=== PATIENT | female | born 1950 | race Caucasian/White ===

== ENCOUNTER 2024-11-28 02:57 | Observation (INO) | payer MEDICARE, SELFPAY ==
[2024-11-28] VITALS (12 sets, daily range): BP systolic 118–155; BP diastolic 48–66; PULSE 85–100; RESP 13–24; TEMP 36.4–37.9; O2SAT 94–99; BMI 29.3
--- NOTE | ~2024-11-28 | XR_ITS ---
CLINICAL HISTORY: sob 1 view chest x-ray Comparison: None provided Findings: The lungs are clear. Normal size heart. Remote right posterior 5th rib fracture is seen. No acute osseous abnormality is identified. IMPRESSION: No acute cardiopulmonary abnormality. This document has been electronically signed by: Hailey Sams on 11/28/2024 07:08:55
--- NOTE | 2024-11-28 03:06 | ECG_ITS ---
Test Reason : SOB Blood Pressure : */* mmHG Vent. Rate : 96 BPM Atrial Rate : 96 BPM P-R Int : 128 ms QRS Dur : 64 ms QT Int : 332 ms P-R-T Axes : 77 32 34 degrees QTcB Int : 419 ms Normal sinus rhythm Septal infarct , age undetermined Abnormal ECG When compared with ECG of 04-Mar-2017 11:09, No significant change was found Referred By: Generic ED Physician Electronically Signed By: HONG LAM
[2024-11-28 03:50] LABS: Hematocrit 38.2 % (37.0-47.0); Hemoglobin 12.8 g/dl (12.0-16.0); Imm Gran Abs Auto 0.03 X10*3/uL (0.00-0.03); Imm Gran Pct Auto 0.4 % (0.0-0.4); Lymphocytes Absolute Auto 0.7 X10*3/uL (1.2-4.9); MANUAL DIFF FLAG NO; Mean Corpuscular HGB Conc 33.5 g/dl (31.0-35.0); Mean Corpuscular Hemoglobin 31.1 pg (27.0-33.0); Mean Corpuscular Volume 92.9 fL (80.0-98.0); NRBC Abs Auto 0.000 X10*3/uL (0.0-0.012); NRBC Pct Auto 0.0 /100WBC (0.0-0.2); Platelet Count 236 X10*3/uL (160-400); Red Blood Count 4.11 X10*6/uL (4.20-5.50); White Blood Count 8.5 X10*3/uL (4.8-10.8)
--- OUTSIDE RECORDS SUMMARY | 2024-11-28 03:56 | XMS_ITS | Encounter Summary ---
Author Organization [facility] Address [address] [place] [address] Care Team Providers Care Cash Register Mechanic Name Role Phone Cooper Gipson DO Primary Care Provider [phone] Encounter Details Date Type Department Care Team (Late st Contact Info) Description 06/13/2024 Lab Requisition [facility] - Main Lab [address] [facility] [place] [address] Radha Garibay MD [address] [place] [address] Encounter for other general examination Social History Tobacco Use Types Packs/Day Years Used Date Smoking Tobacco: Never Assessed Comments Unknown Sex and Gender Information Value Date Recorded Sex Assigned at Not on file Legal Sex Female 11:17 AM EST Gender Identity Not on file Sexual Orientation Not on file documented as of this encounter Plan of Treatment Not on file documented as of this encounter Procedures Procedure Name Priority Date/Time Associated Diagnosis Comments CBC WITH AUTO DIFFERENTIAL Routine 06/13/2024 6:42 AM EDT Encounter for other general examination CBC AND DIFFERENTIAL Routine 06/13/2024 6:42 AM EDT Encounter for other general examination MAGNESIUM Routine 06/13/2024 6:42 AM EDT Encounter for other general examination COMPREHENSIVE METABOLIC PANEL Routine 06/13/2024 6:42 AM EDT Encounter for other general examination documented in this encounter Results * (ABNORMAL) CBC auto differential (06/13/2024 6:42 AM EDT) Pathologist [facility] WBC 6.0 4.8 - 10.8 K/mcL LAB HEMETOLOGY METHOD 06/13/2024 10:34 AM [facility] RBC 4.00 3.80 - 4.80 M/mcL LAB HEMETOLOGY METHOD 06/13/2024 10:34 AM [facility] Hemoglobin 12.2 11.5 - 16.0 g/dL LAB HEMETOLOGY METHOD 06/13/2024 10:34 AM [facility] Hematocrit 38.5 35.0 - 47.0 % LAB HEMETOLOGY METHOD 06/13/2024 10:34 AM [facility] MCV 97.5 79.0 - 98.0 FL LAB HEMETOLOGY METHOD 06/13/2024 10:34 AM [facility] MCH 30.9 27.0 - 32.0 pcg LAB HEMETOLOGY METHOD 06/13/2024 10:34 AM [facility] MCHC 31.7(L) 32.0 - 37.0 g/dL LAB HEMETOLOGY METHOD 06/13/2024 10:34 AM [facility] RDW 13.4 11.0 - 15.0 % LAB HEMETOLOGY METHOD 06/13/2024 10:34 AM [facility] Platelets 302 130 - 400 K/mcL LAB HEMETOLOGY METHOD 06/13/2024 10:34 AM [facility] MPV 10.6 7.0 - 11.0 FL LAB HEMETOLOGY METHOD 06/13/2024 10:34 AM [facility] NRBC 0.0 <1.0 % LAB HEMETOLOGY METHOD 06/13/2024 10:34 AM [facility] NRBC Absolute 0.00 <0.10 K/mcL LAB HEMETOLOGY METHOD 06/13/2024 10:34 AM [facility] Neutrophils Relative 70.5 % LAB HEMETOLOGY METHOD 06/13/2024 10:34 AM [facility] Lymphocytes Relative 16.6 % LAB HEMETOLOGY METHOD 06/13/2024 10:34 AM [facility] Monocytes Relative 11.1 % LAB HEMETOLOGY METHOD 06/13/2024 10:34 AM [facility] Eosinophils Relative 1.3 % LAB HEMETOLOGY METHOD 06/13/2024 10:34 AM [facility] Basophils Relative 0.3 % LAB HEMETOLOGY METHOD 06/13/2024 10:34 AM [facility] Immature Granulocytes Relative 0.2 % LAB HEMETOLOGY METHOD 06/13/2024 10:34 AM [facility] Neutrophils Absolute 4.26 1.50 - 7.00 K/mcL LAB HEMETOLOGY METHOD 06/13/2024 10:34 AM [facility] Lymphocytes Absolute 1.00 1.00 - 5.00 K/mcL LAB HEMETOLOGY METHOD 06/13/2024 10:34 AM [facility] Monocytes Absolute 0.67 0.20 - 1.00 K/mcL LAB HEMETOLOGY METHOD 06/13/2024 10:34 AM [facility] Eosinophils Absolute 0.08 0.00 - 0.50 K/mcL LAB HEMETOLOGY METHOD 06/13/2024 10:34 AM [facility] Basophils Absolute 0.02 0.00 - 0.20 K/mcL LAB HEMETOLOGY METHOD 06/13/2024 10:34 AM [facility] Immature Granulocytes Absolute 0.01 0.00 - 0.03 K/mcL LAB HEMETOLOGY METHOD 06/13/2024 10:34 AM [facility] Blood Venous blood specimen / Unknown Venipuncture / Unknown 06/13/2024 6:42 AM EDT 06/13/2024 9:39 AM EDT us Radha Garibay MD LAB BLOOD ORDERABLES Final Res ult [facility] [address] [place] [address], [place] [phone] * Magnesium (06/13/2024 6:42 AM EDT) [facility] Magnesium 2.0 1.9 - 2.6 mg/dL LAB CHEMISTRY METHOD 06/13/2024 11:21 AM EDT [facility] Blood Venous blood specimen / Unknown Venipuncture / Unknown 06/13/2024 6:42 AM EDT 06/13/2024 9:39 AM EDT us Radha Garibay MD LAB BLOOD ORDERABLES Final Res ult Performing Organization Address City/[facility]/ZIP Co de Phone Number [facility] [address] [place] [address], [place] [phone] * (ABNORMAL) Comprehensive metabolic panel (06/13/2024 6:42 AM EDT) [facility] Sodium 139 133 - 145 mmol/L LAB CHEMISTRY METHOD 06/13/2024 11:21 AM [facility] Potassium 3.7 3.5 - 5.5 mmol/L LAB CHEMISTRY METHOD 06/13/2024 11:21 AM [facility] Chloride 103 96 - 110 mmol/L LAB CHEMISTRY METHOD 06/13/2024 11:21 AM [facility] CO2 29 21 - 32 mmol/L LAB CHEMISTRY METHOD 06/13/2024 11:21 AM [facility] Anion Gap 7 3 - 11 LAB CHEMISTRY METHOD 06/13/2024 11:21 AM [facility] Glucose 97 70 - 100 mg/dL LAB CHE[facility]STR[facility] BUN 14 5 - 25 mg/dL LAB CHEMISTRY METHOD 06/13/2024 11:21 AM [facility] Creatinine 0.66 0.50 - 1.10 mg/dL LAB CHEMISTRY METHOD 06/13/2024 11:21 AM [facility] eGFR 92 >=60 mL/min/1. 73m2 LAB CHEMISTRY METHOD 06/13/2024 11:21 AM [facility] Comment:Calculation based on the Chronic Kidney Disease Epidemiology Collaboration (CKD-EPI) equation refit without adjustment for race. BUN/Creatinine Ratio 21.2 LAB CHEMISTRY METHOD 06/13/2024 11:21 AM [facility] Calcium 8.6 8.5 - 10.5 mg/dL LAB CHEMISTRY METHOD 06/13/2024 11:21 AM [facility] AST (SGOT) 37 10 - 42 unit/L LAB CHEMISTRY METHOD 06/13/2024 11:21 AM [facility] ALT (SGPT) 29 10 - 60 unit/L LAB CHEMISTRY METHOD 06/13/2024 11:21 AM [facility] Alkaline Phosphatase 83 42 - 121 unit/L LAB CHEMISTRY METHOD 06/13/2024 11:21 AM [facility] Total Protein 6.0 6.0 - 8.0 g/dL LAB CHEMISTRY METHOD 06/13/2024 11:21 AM [facility] Albumin 2.9(L) 3.2 - 5.0 g/dL LAB CHEMISTRY METHOD 06/13/2024 11:21 AM [facility] Total Bilirubin 0.5 0.0 - 1.4 mg/dL LAB CHEMISTRY METHOD 06/13/2024 11:21 AM [facility] Blood Venous blood specimen / Unknown Venipuncture / Unknown 06/13/2024 6:42 AM EDT 06/13/2024 9:39 AM EDT us Radha Garibay MD LAB BLOOD ORDERABLES Final Res ult [facility] [address] [place] [address], documented in this encounter Visit Diagnoses Diagnosis Encounter for other general examination documented in this encounter Care Teams Cash Register Mechanic Relationship Specialty Start Date End Date Cooper Gipson DO [address] [place] [phone] PCP - General Internal Medicine 03/31/24 documented as of this encounter
--- OUTSIDE RECORDS SUMMARY | 2024-11-28 03:56 | XMS_ITS | Encounter Summary ---
Author Organization Address [address] [place] [address] Care Team Providers Care Organ Installer Name Role Phone Cooper Gipson DO Primary Care Provider [phone] Encounter Details Date Type Department Care Team (Late st Contact Info) Description 06/24/2024 Lab Requisition [facility] - Main Lab [address] [place] [address] Radha Garibay MD [address] [place] [address] Encounter for other general examination Social History [...] Procedure Name Priority Date/Time Associated Diagnosis Comments COMPLETE BLOOD COUNT Routine 06/24/2024 5:27 AM EDT Encounter for other general examination COMPREHENSIVE METABOLIC PANEL Routine 06/24/2024 5:27 AM EDT Encounter for other general examination documented in this encounter Results * (ABNORMAL) Complete blood count (06/24/2024 5:27 AM EDT) WBC 6.1 4.8 - 10.8 K/[facility] LAB HEMETOLOGY METHOD 06/24/2024 11:06 AM EDT [facility] RBC 4.10 3.80 - 4.80 M/[facility] LAB HEMETOLOGY METHOD 06/24/2024 11:06 AM EDT [facility] Hemoglobin 12.8 11.5 - 16.0 g/dL LAB HEMETOLOGY METHOD 06/24/2024 11:[address] [facility] Hematocrit 41.5 35.0 - 47.0 % LAB HEMETOLOGY METHOD 06/24/2024 11:[address] [facility] MCV 101.2(H) 79.0 - 98.0 FL LAB HEMETOLOGY METHOD 06/24/2024 11:[address] [facility] MCH 31.2 27.0 - 32.0 pcg LAB HEMETOLOGY METHOD 06/24/2024 11:[address] [facility] MCHC 30.8(L) 32.0 - 37.0 g/dL LAB HEMETOLOGY METHOD 06/24/2024 11:[address] [facility] RDW 13.8 11.0 - 15.0 % LAB HEMETOLOGY METHOD 06/24/2024 11:[address] [facility] Platelets 369 130 - 400 K/mcL LAB HEMETOLOGY METHOD 06/24/2024 11:[address] [facility] MPV 11.0 7.0 - 11.0 FL LAB HEMETOLOGY METHOD 06/24/2024 11:[address] [facility] NRBC 0.0 <1.0 % LAB HEMETOLOGY METHOD 06/24/2024 11:[address] [facility] NRBC Absolute 0.00 <0.10 K/mcL LAB HEMETOLOGY METHOD 06/24/2024 11:[address] [facility] Blood Venous blood specimen / Unknown Venipuncture / Unknown 06/24/2024 5:27 AM EDT 06/24/2024 9:38 AM EDT us Radha Garibay MD LAB BLOOD ORDERABLES Final Res ult [facility] [address] [place] [address], * Comprehensive metabolic panel (06/24/2024 5:27 AM EDT) Sodium 141 133 - 145 mmol/L LAB CHEMISTRY METHOD 06/24/2024 11:[address] [facility] Potassium 4.2 3.5 - 5.5 mmol/L LAB CHEMISTRY METHOD 06/24/2024 11:[address] [facility] Chloride 105 96 - 110 mmol/L LAB CHEMISTRY METHOD 06/24/2024 11:[address] [facility] CO2 31 21 - 32 mmol/L LAB CHEMISTRY METHOD 06/24/2024 11:[address] [facility] Anion Gap 5 3 - 11 LAB CHEMISTRY METHOD 06/24/2024 11:[address] [facility] Glucose 81 70 - 100 mg/dL LAB CHEMISTRY METHOD 06/24/2024 11:[address] [facility] BUN 12 5 - 25 mg/dL LAB CHEMISTRY METHOD 06/24/2024 11:[address] [facility] Creatinine 0.66 0.50 - 1.10 mg/dL LAB CHEMISTRY METHOD 06/24/2024 11:[address] [facility] eGFR 92 >=60 mL/min/1. 73m2 LAB CHEMISTRY METHOD 06/24/2024 11:[address] [facility] Comment:Calculation based on the Chronic Kidney Disease Epidemiology Collaboration (CKD-EPI) equation refit without adjustment for race. BUN/Creatinine Ratio 18.2 LAB CHEMISTRY METHOD 06/24/2024 11:[address] [facility] Calcium 9.1 8.5 - 10.5 mg/dL LAB CHEMISTRY METHOD 06/24/2024 11:[address] [facility] AST (SGOT) 35 10 - 42 unit/L LAB CHEMISTRY METHOD 06/24/2024 11:46 AM EDT [facility] ALT (SGPT) 48 10 - 60 unit/L LAB CHEMISTRY METHOD 06/24/2024 11:46 AM EDT [facility] Alkaline Phosphatase 113 42 - 121 unit/L LAB CHEMISTRY METHOD 06/24/2024 11:46 AM EDT [facility] Total Protein 6.4 6.0 - 8.0 g/dL LAB CHEMISTRY METHOD 06/24/2024 11:46 AM EDT [facility] Albumin 3.2 3.2 - 5.0 g/dL LAB CHEMISTRY METHOD 06/24/2024 11:46 AM EDT [facility] Total Bilirubin 0.4 0.0 - 1.4 mg/dL LAB CHEMISTRY METHOD 06/24/2024 11:46 AM T [facility] Blood Venous blood specimen / Unknown Venipuncture / Unknown 06/24/2024 5:27 AM EDT 06/24/2024 9:38 AM EDT us Radha Garibay MD LAB BLOOD ORDERABLES Final Res ult [facility] [address] [place] [address], documented in this encounter Visit Diagnoses Diagnosis Encounter for other general examination documented in this encounter Care Teams Organ Installer Relationship Specialty Start Date End Date Cooper Gipson DO [address] [place] [phone] PCP - General Internal Medicine 03/31/24 documented as of this encounter
--- OUTSIDE RECORDS SUMMARY | 2024-11-28 03:56 | XMS_ITS | Encounter Summary ---
Author Organization [facility] Address [address] [place] [address] Care Team Providers Care Courtroom Clerk Name Role Phone Cooper Gipson DO Primary Care Provider [phone] Encounter Details Date Type Department Care Team (Late st Contact Info) Description 06/18/[address] [facility] - Main Lab [address] [place] [address] Radha Garibay MD [address] [place] [address] Encounter for other general examination Social History [...] Associated Diagnosis Comments COMPLETE BLOOD COUNT Routine 06/18/2024 4:42 AM EDT Encounter for other general examination COMPREHENSIVE METABOLIC PANEL Routine 06/18/2024 4:42 AM EDT Encounter for other general examination documented in this encounter Results * (ABNORMAL) Complete blood count (06/18/2024 4:42 AM EDT) WBC 4.3(L) 4.8 - 10.8 K/[facility] LAB HEMETOLOGY METHOD 06/18/2024 9:43 AM EDT [facility] RBC 3.90 3.80 - 4.80 M/[facility] LAB HEMETOLOGY METHOD 06/18/2024 9:43 AM [facility] Hemoglobin 12.0 11.5 - 16.0 g/dL LAB HEMETOLOGY METHOD 06/18/2024 9:43 AM [facility] Hematocrit 38.4 35.0 - 47.0 % LAB HEMETOLOGY METHOD 06/18/2024 9:43 AM [facility] MCV 99.0(H) 79.0 - 98.0 FL LAB HEMETOLOGY METHOD 06/18/2024 9:43 AM [facility] MCH 30.9 27.0 - 32.0 pcg LAB HEMETOLOGY METHOD 06/18/2024 9:43 AM [facility] MCHC 31.3(L) 32.0 - 37.0 g/dL LAB HEMETOLOGY METHOD 06/18/2024 9:43 AM [facility] RDW 13.9 11.0 - 15.0 % LAB HEMETOLOGY METHOD 06/18/2024 9:43 AM [facility] Platelets 310 130 - 400 K/mcL LAB HEMETOLOGY METHOD 06/18/2024 9:43 AM [facility] MPV 10.8 7.0 - 11.0 FL LAB HEMETOLOGY METHOD 06/18/2024 9:43 AM [facility] NRBC 0.0 <1.0 % LAB HEMETOLOGY METHOD 06/18/2024 9:43 AM [facility] NRBC Absolute 0.00 <0.10 K/mcL LAB HEMETOLOGY METHOD 06/18/2024 9:43 AM [facility] Blood Venous blood specimen / Unknown Venipuncture / Unknown 06/18/2024 4:42 AM EDT 06/18/2024 8:15 AM EDT us Radha Garibay MD LAB BLOOD ORDERABLES Final Res ult [facility] [address] [place] [address], * (ABNORMAL) Comprehensive metabolic panel (06/18/2024 4:42 AM EDT) Sodium 140 133 - 145 mmol/L LAB CHEMISTRY METHOD 06/18/2024 10:14 AM [facility] Potassium 4.4 3.5 - 5.5 mmol/L LAB CHEMISTRY METHOD 06/18/2024 10:14 AM [facility] Chloride 104 96 - 110 mmol/L LAB CHEMISTRY METHOD 06/18/2024 10:14 AM [facility] CO2 31 21 - 32 mmol/L LAB CHEMISTRY METHOD 06/18/2024 10:14 AM [facility] Anion Gap 5 3 - 11 LAB CHEMISTRY METHOD 06/18/2024 10:14 AM [facility] Glucose 89 70 - 100 mg/dL LAB CHEMISTRY METHOD 06/18/2024 10:14 AM [facility] BUN 17 5 - 25 mg/dL LAB CHEMISTRY METHOD 06/18/2024 10:14 AM [facility] Creatinine 0.74 0.50 - 1.10 mg/dL LAB CHEMISTRY METHOD 06/18/2024 10:14 AM [facility] eGFR 85 >=60 mL/min/1. 73m2 LAB CHEMISTRY METHOD 06/18/2024 10:14 AM [facility] Comment:Calculation based on the Chronic Kidney Disease Epidemiology Collaboration (CKD-EPI) equation refit without adjustment for race. BUN/Creatinine Ratio 23.0 LAB CHEMISTRY METHOD 06/18/2024 10:14 AM [facility] Calcium 9.4 8.5 - 10.5 mg/dL LAB CHEMISTRY METHOD 06/18/2024 10:14 AM [facility] AST (SGOT) 64(H) 10 - 42 unit/L LAB CHEMISTRY METHOD 06/18/2024 10:14 AM [facility] ALT (SGPT) 52 10 - 60 unit/L LAB CHEMISTRY METHOD 06/18/2024 10:14 AM [facility] Alkaline Phosphatase 105 42 - 121 unit/L LAB CHEMISTRY METHOD 06/18/2024 10:14 AM [facility] Total Protein 6.0 6.0 - 8.0 g/dL LAB CHEMISTRY METHOD 06/18/2024 10:14 AM [facility] Albumin 2.9(L) 3.2 - 5.0 g/dL LAB CHEMISTRY METHOD 06/18/2024 10:14 AM [facility] Total Bilirubin 0.3 0.0 - 1.4 mg/dL LAB CHEMISTRY METHOD 06/18/2024 10:14 AM [facility] Blood Venous blood specimen / Unknown Venipuncture / Unknown 06/18/2024 4:42 AM EDT 06/18/2024 8:15 AM EDT us Radha Garibay MD LAB BLOOD ORDERABLES Final Res ult [facility] [address] [place] [address], documented in this encounter Visit Diagnoses Diagnosis Encounter for other general examination documented in this encounter Care Teams Courtroom Clerk Relationship Specialty Start Date End Date Cooper Gipson DO [address] [place] [phone] PCP - General Internal Medicine 03/31/24 documented as of this encounter
--- OUTSIDE RECORDS SUMMARY | 2024-11-28 03:56 | XMS_ITS | Clinical Summary ---
Author Organization [address] [facility] Address [address] [place] [address] Phone Care Team Providers Care Maintenance Welder Name Role Phone Cooper Gipson Primary Care Provider [phone] Social History Tobacco Use Types Packs/Day Years Used Date Smoking Tobacco: Never Assessed Comments Unknown Sex and Gender Information Value Date Recorded Sex Assigned at Not on file Legal Sex Female 11:17 AM EST Gender Identity Not on file Sexual Orientation Not on file Plan of Treatment Health Maintenance Due Date Last Done Comments Breast Cancer Screening 1950 DTaP,Tdap,and Td Vaccines (1 - Tdap) 1969 Pneumococcal Vaccine: 50+ Years (1 of 1 - PCV) 2000 Zoster Vaccines (1 of 2) 2000 Depression Screening 03/11/2024 Colorectal Cancer Screening: Colonoscopy 03/31/2024 Falls Risk Assessment 03/31/2024 Hepatitis C Screening 03/31/2024 Medicare Annual Wellness Visit 03/31/2024 Osteoporosis Screening (Bone Density Screening) 03/31/2024 Social Influencers of Health Screening 03/31/2024 COVID-19 Vaccine ( season) 2024 03/29/2021, 06/23/2020, 06/01/2020 Influenza Vaccine (#1) 2024 , 03/06/2023, 02/14/2022 RSV Immunization Adult Patients (1 - 1-dose 75+ series) 2025 Hypertension/CHF/CAD Annual BMP Blood Test 07/08/2025 07/08/2024, 06/24/2024, 06/18/2024, Additional history exists Cholesterol Screening (Lipid Panel) 03/31/2029 03/31/2024 HIB Vaccines Aged Out No longer eligi ble based on patient's age to complete this topic HPV Vaccines Aged Out No longer eligi ble based on patient's age to complete this topic Hepatitis A Vaccines Aged Out No long er eligible based on patient's age to complete this topic Hepatitis B Vaccines Aged Out No long er eligible based on patient's age to complete this topic IPV Vaccines Aged Out No longer eligi ble based on patient's age to complete this topic MMR Vaccines Aged Out No longer eligi ble based on patient's age to complete this topic Meningococcal ACWY Vaccine Aged Out N o longer eligible based on patient's age to complete this topic Meningococcal B Vaccine Aged Out No l onger eligible based on patient's age to complete this topic RSV Immunization Patients Under 20 months Aged Out No longer eligible based on patient's age to complete this topic Varicella Vaccines Aged Out No longer eligible based on patient's age to complete this topic Procedures Procedure Name Priority Date/Time Associated Diagnosis Comments BASIC METABOLIC PANEL Routine 07/08/2024 2:21 PM EDT HTN (hypertension) LIPID PANEL WITH REFLEX TO DIRECT LDL Routine 03/31/2024 11:35 AM EST HTN (hypertension) HLD (hyperlipidemia) Hypothyroid IGT (impaired glucose tolerance) Weight gain from Last 3 Months or Most Recently Relevant to Health Maintenance Results * Basic metabolic panel (07/08/2024 2:21 PM EDT) Sodium 138 133 - 145 mmol/L LAB CHEMISTRY METHOD 07/08/2024 8:36 PM EDT [facility] Potassium 4.4 3.5 - 5.5 mmol/L LAB CHEMISTRY METHOD 07/08/2024 8:36 PM T [facility] Chloride 104 96 - 110 mmol/L LAB CHEMISTRY METHOD 07/08/2024 8:36 PM [facility] CO2 26 21 - 32 mmol/L LAB CHEMISTRY METHOD 07/08/2024 8:36 PM [facility] Anion Gap 8 3 - 11 LAB CHEMISTRY METHOD 07/08/2024 8:36 PM [facility] Glucose 84 70 - 100 mg/dL LAB CHEMISTRY METHOD 07/08/2024 8:36 PM EDT [facility] BUN 22 5 - 25 mg/dL LAB CHEMISTRY METHOD 07/08/2024 8:36 PM EDT [facility] Creatinine 0.82 0.50 - 1.10 mg/dL LAB CHEMISTRY METHOD 07/08/2024 8:36 PM EDT [facility] eGFR 75 >=60 mL/min/1. 73m2 LAB CHEMISTRY METHOD 07/08/2024 8:36 PM EDT [facility] Comment:Calculation based on the Chronic Kidney Disease Epidemiology Collaboration (CKD-EPI) equation refit without adjustment for race. BUN/Creatinine Ratio 26.8 LAB CHEMISTRY METHOD 07/08/2024 8:36 PM EDT [facility] Calcium 9.6 8.5 - 10.5 mg/dL LAB CHEMISTRY METHOD 07/08/2024 8:36 PM EDT [facility] Blood Venous blood specimen / Unknown Venipuncture / Unknown 07/08/2024 2:21 PM EDT 07/08/2024 2:21 PM EDT us Cooper Gipson DO LAB BLOOD ORDERABLES Final Re sult [facility] [address] [place] [address], * (ABNORMAL) Lipid panel with reflex to direct LDL (03/31/2024 11:35 AM EST) Cholesterol 200 0 - 200 mg/dL LAB CHEMISTRY METHOD 03/31/2024 3:51 PM EST [facility] Triglycerides 96 0 - 150 mg/dL LAB CHEMISTRY METHOD 03/31/2024 3:51 PM EST [facility] HDL 66 >=40 mg/dL LAB CHEMISTRY METHOD 03/31/2024 3:51 PM EST [facility] LDL Calculated 115(H) 0 - 100 mg/dL LAB CHEMISTRY METHOD 03/31/2024 3:51 PM EST [facility] VLDL Cholesterol Sid 19.2 mg/dL LAB CHEMISTRY METHOD 03/31/2024 3:51 PM EST [facility] Non HDL Chol. (LDL+VLDL) 134 <145 mg/dL LAB CHEMISTRY METHOD 03/31/2024 3:51 PM EST [facility] Chol/HDL Ratio 3.0 0.0 - 4.4 LAB CHEMISTRY METHOD 03/31/2024 3:51 PM EST [facility] Blood Venous blood specimen / Unknown Venipuncture / Unknown 03/31/2024 11:35 AM EST 03/31/2024 11:35 AM EST us Cooper Gipson DO LAB BLOOD ORDERABLES Final Re sult [facility] [address] [place] [address], from Last 3 Months or Most Recently Relevant to Health Maintenance Insurance MEDICARE [facility] Care Teams Maintenance Welder Relationship Specialty Start Date End Date Cooper Gipson DO [address] [place] [phone] PCP - General Internal Medicine 03/31/24
[2024-11-28 04:11] LABS: Alanine Aminotransferase 13 U/L (0-31); Albumin Level 4.0 g/dL (3.5-5.0); Alkaline Phosphatase 71 U/L (39-117); Anion Gap 12 (12-20); Aspartate Amino Transferase 21 U/L (5-31); Blood Urea Nitrogen 16 mg/dL (9-16); Calcium 9.2 mg/dL (8.4-10.2); Carbon Dioxide 26 mmol/L (22-29); Chloride 105 mmol/L (96-108); Creatinine Clr Calc Pharmacy 42.0; Estimated Glomerular Filt Rate 54; Potassium 3.8 mmol/L (3.3-5.1); Sodium 139 mmol/L (135-145); Total Protein 6.7 g/dL (6.5-8.0)
[2024-11-28 04:17] LABS: COVID-19 Test Negative (Negative); IDNOW Serial# 55D5AD1C; IDNOW Serial# 58CA691E; Influenza B2 Negative (Negative)
--- NOTE | 2024-11-28 06:02 | ED.GENADULT ---
HPI - General Adult General Chief complaint: Upper Respiratory Symptoms Stated complaint: Dyspnea, Chest Pressure Time Seen by Provider: 11/28/24 05:16 Source: patient Limitations: no limitations History of Present Illness ED Provider: Maureen Tan PA-C HPI narrative: 74-year-old female with a history of asthma, hypertension, prior tobacco use who presents with cough and cold symptoms times 2-3 days. Associated generalized malaise, myalgia, lethargy, and worsening weakness. Patient states her his head to help her walk to the bathroom at home. Patient also notes shortness of breath, repetitive productive cough expelling clear sputum with chest tightness. Denies nausea vomiting diarrhea or known fever. Related Data Home Medications ?Medication ?Instructions ?Recorded ?Confirmed acetaminophen 325 mg tablet 650 mg PO Q4H PRN Pain (Scale 11/28/24 11/28/24 Score 4-6) amlodipine 5 mg tablet 5 mg PO DAILY 11/28/24 11/28/24 docusate sodium 50 mg capsule 50 mg PO DAILY PRN Constipation 11/28/24 11/28/24 fluoxetine 20 mg capsule 40 mg PO DAILY 11/28/24 11/28/24 lisinopril 20 mg tablet 20 mg PO DAILY 11/28/24 11/28/24 trazodone 50 mg tablet 100 mg PO BEDTIME 11/28/24 11/28/24 Previous Rx's ?Medication ?Instructions ?Recorded benzonatate 100 mg capsule 100 mg PO TID PRN Cough #20 caps 11/28/24 Allergies Allergy/AdvReac Type Severity Reaction Status Date / Time morphine (MORPHINE) Allergy Unknown PT STATES Verified 11/28/24 03:06 BEING OVERSEDATED ON IT, SLEEPING FOR 24HOURS Review of Systems Review of Systems: Yes all other systems are reviewed and are negative Constitutional: Constitutional: Reports fatigue, Reports fever(s) and Reports malaise Cardiovascular: Cardiovascular: Reports chest pain and Reports dyspnea Respiratory: Respiratory: Reports chest congestion, Reports cough, Reports dyspnea and Denies wheezing Gastrointestinal: Gastrointestinal: Denies abdominal pain, Denies diarrhea, Denies nausea and Denies vomiting Endocrine: Endocrine: Reports fatigue Allergic/Immunologic: Allergic/Immunologic: Denies wheezing PMFSH Past Medical History Attestation statement: The following information was validated with the patient. Medical History (Updated 11/28/24 @ 16:47 by ELIAN Moser) Fibromyalgia HTN (hypertension) Surgical History (Updated 11/28/24 @ 08:44 by ELIAN Moser) Previous back surgery Social History Social History (Updated 11/28/24 @ 08:45 by ELIAN Moser) Alcohol intake: never Patient Tobacco Use Status: Never used Tobacco Physical Exam ED Vital Signs: Vital Signs - 24 hr 11/28/24 03:02 11/28/24 06:15 11/28/24 06:18 Temperature 99.7 F 100.2 F Pulse Rate 100 87 89 Respiratory Rate 24 H 13 17 Blood Pressure 155/65 H 151/60 H Pulse Oximetry 95 94 Oxygen Delivery Method Room Air Room Air 11/28/24 07:15 11/28/24 07:36 Temperature 98.5 F 98.6 F Pulse Rate 96 96 Respiratory Rate 16 18 Blood Pressure 135/56 L 120/48 L Pulse Oximetry 95 99 Oxygen Delivery Method Room Air Room Air BMI result Body Mass Index 29.3 Const Other: Alert, ill-appearing Orientation/consciousness: patient oriented x3 Resp Other: Active wet cough, no wheezing on exam, no rhonchi Cardio Other: Normal peripheral perfusion Skin Other: Warm dry no rash Neuro General: patient oriented x3, gait normal, no focal motor deficits and CN's II-XI intact bilaterally Psych Other: Cooperative Course Reevaluation(s) Reevaluation #1: At 6:14 a.m. on November 28, sepsis focused exam was performed, patient is febrile 100.2 rectally, she is tachycardic, in addition to screening labs adding on blood cultures and lactic. It is likely Respiratory source given she is here with cough and cold symptoms, we will start ceftriaxone azithromycin, giving normal saline and Tylenol for the fever. Also treating concurrently for potential bronchitis. Adding a breathing treatment and steroid Time: 06:14 Reevaluation #2: Patient will be admitted for asthma exacerbation. Time: 12:41 Medications Administered Discontinued Medications Generic Name Dose Route Start Last Admin Trade Name Freq PRN Reason Stop Dose Admin Albuterol Sulfate 7.5 mg 11/28/24 06:06 11/28/24 06:17 Albuterol Sulfate (0.083%) 2.5 Mg/3 Ml Vial.Neb INHALE 11/28/24 06:07 7.5 mg ONCE ONE Administration Benzonatate 100 mg 11/28/24 08:14 11/28/24 16:05 Benzonatate 100 Mg Capsule PO 100 mg TID PRN Administration Cough Ceftriaxone Sodium 2 gm 11/28/24 06:13 11/28/24 06:47 Ceftriaxone Sodium 2 Gm Vial IVPUSH 11/28/24 06:14 2 gm ONCE ONE Administration Guaifenesin/Dextromethorphan 10 ml 11/28/24 08:14 11/28/24 16:05 Guaifenesin Dm 200/20/10 Ml 10 Ml Syrup PO 10 ml TID PRN Administration Cough Sodium Chloride 1,000 mls @ 999 mls/hr 11/28/24 05:30 11/28/24 07:35 Ns IV 11/28/24 06:30 Infused .Q1H1M MARIAM Infusion Acetaminophen 1,000 mg in 100 mls @ 400 mls/hr 11/28/24 05:27 11/28/24 06:47 Ofirmev IV 11/28/24 05:41 Infused ONCE ONE Infusion Azithromycin 500 mg/ Sodium 250 mls @ 125 mls/hr 11/28/24 06:13 11/28/24 09:19 Chloride IV 11/28/24 08:12 Infused ONCE ONE Infusion Methylprednisolone Sodium Succinate 60 mg 11/28/24 06:06 11/28/24 06:17 Methylprednisolone Sod Succ 125 Mg/2 Ml Vial IVPUSH 11/28/24 06:07 60 mg ONCE ONE Administration Sodium Chloride 3 ml 11/28/24 16:00 11/28/24 17:20 0.9 % Sodium Chloride Flush 3 Ml Syringe IVFLUSH Not Given QSHIFT [facility] Sodium Chloride 1 spray 11/28/24 08:15 11/28/24 17:20 Sodium Chloride 0.65 % Nasal 44 Ml Sprbtl NOSTRIL-B Not Given Q6H [facility] Medical Decision Making Medical Decision Making MDM Narrative: 74-year-old female with a history of asthma, hypertension, prior tobacco use who presents with cough and cold symptoms times 2-3 days. Associated generalized malaise, myalgia, lethargy, and worsening weakness. Patient states her his head to help her walk to the bathroom at home. Patient also notes shortness of breath, repetitive productive cough expelling clear sputum with chest tightness. Denies nausea vomiting diarrhea or known fever. Problem: Hypertension, asthma, prior tobacco abuse, age History: Per patient I have considered the following differential diagnoses: Viral syndrome, bronchitis, pneumonia, asthma exacerbation, sepsis Plan: The patient is febrile and tachycardic, she meets sepsis criteria, in addition to screening labs, blood cultures and lactic have been obtained. We will start fluid, giving Tylenol and starting ceftriaxone azithromycin. Based on my exam, I am also treating her for bronchitis, giving a breathing treatment and steroid. Viral panel completed, it is negative, chest x-ray also completed the formal read is not back. I have independently reviewed the following tests: Labs: No overall leukocytosis, left shift noted, not anemic, no electrolyte abnormality, lactic , viral panel negative EKG: Normal sinus rhythm, rate of 96, no ischemic changes no ectopy when compared to prior study, QTC 419 Chest x-ray: Questionable right lower lobe infiltrate per my read Differential Diagnosis Differential Diagnoses: The differential diagnosis associated with the presentation includes See medical decision-making Admission/Observation Consideration of admission/observation: Escalation of care including admission/observation considered Admit Consult Healthcare Provider Management of the patient was discussed with: Hospitalist Lab Data [facility] Lab Attestation statement: I reviewed the patient's lab results. 11/28/24 03:45 11/28/24 03:45 Labs: Lab Results 11/28/24 11/28/24 11/28/24 Range/Units 03:40 03:45 06:06 WBC 8.5 (4.8-10.8) X10*3/uL RBC 4.11 L (4.20-5.50) X10*6/uL Hgb 12.8 (12.0-16.0) g/dl Hct 38.2 (37.0-47.0) % MCV 92.9 (80.0-98.0) fL MCH 31.1 (27.0-33.0) pg MCHC 33.5 (31.0-35.0) g/dl RDW 13.4 (11.0-16.0) % Plt Count 236 (160-400) X10*3/uL MPV 10.7 (9.4-12.3) fL Immature Gran % (Auto) 0.4 (0.0-0.4) % Neut % (Auto) 82.2 H (45-73) % Lymph % (Auto) 8.0 L (20-40) % [place] % (Auto) 8.6 (2-11) % Eos % (Auto) 0.6 (0-4) % Baso % (Auto) 0.2 (0-2) % Lymph # (Auto) 0.7 L (1.2-4.9) X10*3/uL [place] # (Auto) 0.7 (0.1-1.2) X10*3/uL Eos # (Auto) 0.1 (0.0-0.4) X10*3/uL Baso # (Auto) 0.0 (0.0-0.2) X10*3/uL Abs Immat Gran (auto) 0.03 (0.00-0.03) X10*3/uL Absolute Neuts (auto) 7.0 (2.0-8.3) x10*3/uL Absolute Nucleated RBC 0.000 (0.0-0.012) X10*3/uL Nucleated RBC % (auto) 0.0 (0.0-0.2) /100WBC Sodium 139 (135-145) mmol/L Potassium 3.8 (3.3-5.1) mmol/L Chloride 105 (96-108) mmol/L Carbon Dioxide 26 (22-29) mmol/L Anion Gap 12 (12-20) BUN 16 (9-16) mg/dL Creatinine 1.01 (0.5-1.4) mg/dL Estim Creat Clear Calc 42.0 Estimated GFR 54 Random Glucose 115 (60-115) mg/dL Lactic Acid 0.7 (0.5-2.0) mmol/L Calcium 9.2 (8.4-10.2) mg/dL Total Bilirubin 0.5 (0.0-1.0) mg/dL AST 21 (5-31) U/L ALT 13 (0-31) U/L Alkaline Phosphatase 71 (39-117) U/L Total Protein 6.7 (6.5-8.0) g/dL Albumin 4.0 (3.5-5.0) g/dL COVID-19 (MARISSA) Negative (Negative) COVID-19 Clin Com See Note Influenza Type A (JOSÉ) Negative (Negative) Influenza Type B (JOSÉ) Negative (Negative) Influenza A & B Note See Note Independent Interpretation I performed an independent interpretation of an: EKG and Plain X-Ray Critical Care Time Critical Care Time Critical Care Time: Yes Total Critical Care Time: 35 Attestation: I Maureen Tan PA-C have personally performed 35 minutes of critical care time not including lines and procedures; sepsis, need for IV antibiotics, need for updraft steroid, hospital admission Discharge Plan Discharge Clinical Impression: Weakness, Fever, Pneumonia Patient Disposition: Admitted As Inpatient Interventions: Admission Worksheet (ED) Last Done: 11/28/24 09:21 ED Discharge Assessment Last Done: 11/28/24 17:23 Discharge Date/Time: 11/28/24 17:23
[2024-11-28] MEDS: Albuterol Sulfate (0.083%) 2.5 MG/3 ML VIAL.NEB 7.5 MG INHALE (06:17)
--- NOTE | 2024-11-28 08:15 | P.HPHOSP_ITS ---
History of Present Illness Date of Service: 11/28/24 Attending physician on admission: Lara Mattson Chief Complaint: cough, sob This is a 74-year-old female with history of asthma who presents to the emergency department with cold symptoms. Patient states for the past 3 days she has had cough productive of yellow phlegm, nasal congestion, headache, body aches. She denies any fever, no recent sick contacts. No abdominal pain, vomiting, diarrhea. She reports generalized weakness and fatigue and decreased appetite. In the emergency department she had low-grade fever of 100.2. Lab work was unremarkable. Lactic acid normal. Chest x-ray with no evidence of pneumonia. She was treated with IV steroids, breathing treatments, empiric antibiotics. Viral screen for influenza and COVID-19 was negative. Review of Systems 2 Review of Systems: Yes all other systems are reviewed and are negative Constitutional: Constitutional: Reports body ache(s), Denies chills, Reports headache(s) and Reports lethargy ENT: Reports headache(s) Cardiovascular: Cardiovascular: Denies chest pain and Denies palpitations Respiratory: Respiratory: Reports cough Gastrointestinal: Gastrointestinal: Denies abdominal pain, Denies diarrhea and Denies vomiting Neurologic: Reports headache(s) Endocrine: Endocrine: Denies palpitations [facility] Medical History (Updated 11/28/24 @ 08:47 by ELIAN Moser) Fibromyalgia HTN (hypertension) Surgical History (Updated 11/28/24 @ 08:44 by ELIAN Moser) Previous back surgery Social History (Updated 11/28/24 @ 08:45 by ELIAN Moser) Alcohol intake: never Patient Tobacco Use Status: Never used Tobacco Smoked in Last 30 Days: No Use of substances other than those prescribed or required for medical reasons: No Advance Directives: No Advance Directives Information Provided: Yes Do you have a plan to hurt others: No Plan Meds Allergies Allergy/AdvReac Type Severity Reaction Status Date / Time morphine (MORPHINE) Allergy Unknown PT STATES Verified 11/28/24 03:06 BEING OVERSEDATED ON IT, SLEEPING FOR 24HOURS Active Medications: Current Medications Acetaminophen (Acetaminophen 325 Mg Tablet) 650 mg PO Q6H PRN PRN Reason: Pain, Mild 1-3,fever,headache Albuterol Sulfate (Albuterol Sulfate (0.083%) 2.5 Mg/3 Ml Vial.Neb) 2.5 mg INHALE Q6H PRN PRN Reason: Shortness of Breath/Wheezing Calcium Carbonate (Calcium Carbonate 750 Mg Tab.Chew) 750 mg PO Q4H PRN PRN Reason: Heartburn Magnesium Hydroxide (Milk Of Magnesia 30 Ml Oral.Susp) 30 ml PO DAILY PRN PRN Reason: Constipation Melatonin (Melatonin 3 Mg Tablet) 6 mg PO BEDTIME PRN PRN Reason: Insomnia Sodium Chloride (0.9 % Sodium Chloride Flush 3 Ml Syringe) 3 ml IVFLUSH QSHIFT MARIAM Sodium Chloride (Sodium Chloride 0.65 % Nasal 44 Ml Sprbtl) 1 spray NOSTRIL-B Q6H [facility] Home Medications ?Medication ?Instructions ?Recorded ?Confirmed ?Last Taken ?Type amlodipine 5 mg tablet 5 mg PO DAILY 11/28/24 Unkn own History fluoxetine 20 mg capsule 20 mg PO BID 11/28/24 Unkno wn History hydrochlorothiazide 25 mg tablet 25 mg PO QAM 11/28/24 Unknown History lisinopril 20 mg tablet 20 mg PO DAILY 11/28/24 Unk nown History trazodone 50 mg tablet 200 mg PO BEDTIME 11/28/24 Unknown History Physical Exam 2 Vital Signs and Narrative: Vital Signs: Last Vital Signs Temp 98.6 F 11/28/24 07:36 Pulse 90 11/28/24 08:12 Resp 18 11/28/24 08:12 BP 125/60 11/28/24 08:12 Pulse Ox 95 11/28/24 08:12 O2 Del Method Room Air 11/28/24 08:12 BMI result Body Mass Index 29.3 Const: Other: ill appearing General: alert and awake Nutritional Appearance: average body habitus Orientation/consciousness: patient oriented x3 Resp: Other: no wheeze; diminished breath sounds Effort & Inspection: normal respiratory effort, able to speak in complete sentences, no respiratory distress and no use of accessory muscles Cardio: Rate: regular rate GI: Inspection: No distended Palpation (GI): Soft to palpation and nontender Neuro: General: patient oriented x3, moves all extremities and CN's II-XI intact bilaterally Extrem: General: No pedal edema Results Labs 11/28/24 03:45 11/28/24 03:45 Labs: Laboratory Results - last 24 hr 11/28/24 11/28/24 11/28/24 03:40 03:45 06:06 MCV 92.9 MCH 31.1 MCHC 33.5 RDW 13.4 Plt Count 236 MPV 10.7 Immature Gran % (Auto) 0.4 Neut % (Auto) 82.2 H Lymph % (Auto) 8.0 L [place] % (Auto) 8.6 Eos % (Auto) 0.6 Baso % (Auto) 0.2 Lymph # (Auto) 0.7 L [place] # (Auto) 0.7 Eos # (Auto) 0.1 Baso # (Auto) 0.0 Abs Immat Gran (auto) 0.03 Absolute Neuts (auto) 7.0 Absolute Nucleated RBC 0.000 Nucleated RBC % (auto) 0.0 Anion Gap 12 Estim Creat Clear Calc 42.0 Estimated GFR 54 Random Glucose 115 Lactic Acid 0.7 Calcium 9.2 Total Bilirubin 0.5 AST 21 ALT 13 Alkaline Phosphatase 71 Total Protein 6.7 Albumin 4.0 COVID-19 (MARISSA) Negative COVID-19 Clin Com See Note Influenza Type A (JOSÉ) Negative Influenza Type B (JOSÉ) Negative Influenza A & B Note See Note Assessment and Plan (1) Viral bronchitis: Status: Acute Plan This is a 74-year-old female with history of fibromyalgia, asthma who presents to the emergency department with multiple complaints including cough congestion and shortness of breath Acute viral URI check full RPP supportive care with cough medicine, IVF, breathing treatments as needed Antipyretics as needed No hypoxia at this time HTN continue baseline meds med rec pending at the time of admission DVT ppx -mechanical devices, early ambulation Quality Stroke Does the patient have a stroke diagnosis?: No VTE Prior VTE?: No VTE Risk Level:: Medical - moderate - high VTE Device Contraindication: N/A - Device Ordered VTE Drug Contraindication: Treatment Not Indicated
[2024-11-28 09:23] LABS: Chlamydia pneumoniae PCR Not Detected (Not Detect.); Coronavirus 229E PCR Not Detected (Not Detect.); Coronavirus HKU1 PCR Not Detected (Not Detect.); Coronavirus NL63 PCR Not Detected (Not Detect.); Coronavirus OC43 PCR Not Detected (Not Detect.); RSV PCR Not Detected (Not Detect.); Rhino/Enterovirus PCR Detected (Not Detect.)
--- NOTE | 2024-11-28 09:45 | PC.NURSE ---
Pt up oob, ambulatory to the commode with this RN. Steady gait while ambulating. Placed back in bed, repositioned for comfort. Call layne within reach, all needs met at this time.
[2024-11-28 10:25] LABS: Influenza A H1 PCR Not Detected (Not Detect.); Influenza A H1-2009 PCR Not Detected (Not Detect.); Influenza A H3 PCR Not Detected (Not Detect.); SARS-CoV-2 PCR Not Detected (Not Detect.)
--- NOTE | 2024-11-28 11:08 | PHA.MEDREC ---
Addendum entered by Kirstin Schafer [facility] 11/28/24 11:35: MED REC REVIEWED BY [facility] Addendum entered by Teo Mars 11/28/24 11:13: Dosing for fluoxetine is two 20 mg capsules in the morning, NOT 10 mg capsules. Original Note: Pharmacy Consult ? Medication Reconciliation Pharmacy has completed the medication reconciliation. Confirmed medication list with patient. Patient takes two 50 mg trazodone at bedtime. Patient takes two 10 mg fluoxetine in the morning instead of one BID. Patient took all non-PRN medications yesterday, including the trazodone last night.
[2024-11-28] MEDS: guaiFENesin DM 200/20/10 ML 10 ML SYRUP PO (16:05)
--- NOTE | 2024-11-28 16:46 | P.DS_ITS ---
DS: Providers Provider Date of Service: 11/28/24 Date of admission: 11/28/24 08:12 Date of discharge: 11/28/24 Primary care physician: Cooper Gipson DO, MD Attending physician on discharge: Tiffany Goodson Discharging clinician: Josefa Quinn DS: Diagnosis Discharge Diagnosis (1) Rhinovirus: Status: Acute DS: Summary Hospital Course Hospital Course: From H&P on the day of admission This is a 74-year-old female with history of asthma who presents to the emergency department with cold symptoms. Patient states for the past 3 days she has had cough productive of yellow phlegm, nasal congestion, headache, body aches. She denies any fever, no recent sick contacts. No abdominal pain, vomiting, diarrhea. She reports generalized weakness and fatigue and decreased appetite. In the emergency department she had low-grade fever of 100.2. Lab work was unremarkable. Lactic acid normal. Chest x-ray with no evidence of pneumonia. She was treated with IV steroids, breathing treatments, empiric antibiotics. Viral screen for influenza and COVID-19 was negative. Patient tested positive for entero/rhinovirus. She was treated symptomatically. She has decided she would prefer to recover at home and has requested to be discharged. She has no hypoxia during her time in the ED, she has remained afebrile and was able to ambulate to the bathroom without assistance. She will be discahrged home with recommendation to return if her symptoms should worsen. Time Attestation Discharge Coordination Time (in mins): 26 Quality: Safe Use of Opioids Does Pt have an Active Cancer Diagnosis on the Problem List?: No Quality: Stroke Does the patient have a stroke diagnosis?: No Physical Exam Exam: Exam: same as upon admission. awake, alert and oriented x 3 at the time of discharge. Vital Signs: Vital Signs: Last Vital Signs Temp 97.6 F 11/28/24 14:14 Pulse 94 11/28/24 14:14 Resp 16 11/28/24 14:14 BP 127/66 11/28/24 14:14 Pulse Ox 96 11/28/24 14:14 O2 Del Method Room Air 11/28/24 14:14 BMI result Body Mass Index 29.3 DS: Data Data Completed and Pending Labs on day of discharge: Laboratory Results - last 24 hr 11/28/24 11/28/2411/28/25 03:40 03:45 06:06 WBC 8.5 RBC 4.11 L Hgb 12.8 Hct 38.2 MCV 92.9 MCH 31.1 MCHC 33.5 RDW 13.4 Plt Count 236 MPV 10.7 Immature Gran % (Auto) 0.4 Neut % (Auto) 82.2 H Lymph % (Auto) 8.0 L [place] % (Auto) 8.6 Eos % (Auto) 0.6 Baso % (Auto) 0.2 Lymph # (Auto) 0.7 L [place] # (Auto) 0.7 Eos # (Auto) 0.1 Baso # (Auto) 0.0 Abs Immat Gran (auto) 0.03 Absolute Neuts (auto) 7.0 Absolute Nucleated RBC 0.000 Nucleated RBC % (auto) 0.0 Sodium 139 Potassium 3.8 Chloride 105 Carbon Dioxide 26 Anion Gap 12 BUN 16 Creatinine 1.01 Estim Creat Clear Calc 42.0 Estimated GFR 54 Random Glucose 115 Lactic Acid 0.7 Calcium 9.2 Total Bilirubin 0.5 AST 21 ALT 13 Alkaline Phosphatase 71 Total Protein 6.7 Albumin 4.0 Respiratory Panel Ramires Adenovirus (Rapid PCR) B.pert (TEM-PCR) B.parapertussis DNA PCR C. pneumoniae DNA (PCR) Coronavirus OC43 (PCR) Coronavirus HKU1 (PCR) Coronavirus 229E (PCR) COVID-19 (MARISSA) Negative COVID-19 Clin Com See Note Coronavirus NL63 (PCR) Human Metapneumovir PCR Influenza Type A (JOSÉ) Negative Influenza A (RT-PCR) Influenza A (H1) PCR Influ A (H1/09) PCR Influenza A (H3) PCR Influenza Type B (JOSÉ) Negative Influenza B (RT-PCR) Influenza A & B Note See Note M. pneumoniae (PCR) Parainfluenza 1 (PCR) Parainfluenza 2 (PCR) Parainfluenza 3 (PCR) Parainfluenza 4 (PCR) RSV (PCR) Entero/Rhino (PCR) SARS-CoV-2 RNA (RT-PCR) 11/28/24 08:23 WBC RBC Hgb Hct MCV MCH MCHC RDW Plt Count MPV Immature Gran % (Auto) Neut % (Auto) Lymph % (Auto) [place] % (Auto) Eos % (Auto) Baso % (Auto) Lymph # (Auto) [place] # (Auto) Eos # (Auto) Baso # (Auto) Abs Immat Gran (auto) Absolute Neuts (auto) Absolute Nucleated RBC Nucleated RBC % (auto) Sodium Potassium Chloride Carbon Dioxide Anion Gap BUN Creatinine Estim Creat Clear Calc Estimated GFR Random Glucose Lactic Acid Calcium Total Bilirubin AST ALT Alkaline Phosphatase Total Protein Albumin Respiratory Panel Ramires See Note Adenovirus (Rapid PCR) Not Detected B.pert (TEM-PCR) Not Detected B.parapertussis DNA PCR Not Detected C. pneumoniae DNA (PCR) Not Detected Coronavirus OC43 (PCR) Not Detected Coronavirus HKU1 (PCR) Not Detected Coronavirus 229E (PCR) Not Detected COVID-19 (MARISSA) COVID-19 Clin Com Coronavirus NL63 (PCR) Not Detected Human Metapneumovir PCR Not Detected Influenza Type A (JOSÉ) Influenza A (RT-PCR) Not Detected Influenza A (H1) PCR Not Detected Influ A (H1/09) PCR Not Detected Influenza A (H3) PCR Not Detected Influenza Type B (JOSÉ) Influenza B (RT-PCR) Not Detected Influenza A & B Note M. pneumoniae (PCR) Not Detected Parainfluenza 1 (PCR) Not Detected Parainfluenza 2 (PCR) Not Detected Parainfluenza 3 (PCR) Not Detected Parainfluenza 4 (PCR) Not Detected RSV (PCR) Not Detected Entero/Rhino (PCR) Detected A SARS-CoV-2 RNA (RT-PCR) Not Detected Discharge Plan Discharge Patient Disposition: Home, Self-Care Discharge Diagnosis: entero/rhinovirus Referrals: Cooper Gipson DO, MD [Primary Care Provider, Internal Medicine] - 1 Week Discharge Medications: New benzonatate 100 mg Capsule 100 mg PO TID PRN (Reason: Cough) Qty: 20 0RF Continued trazodone 50 mg tablet 100 mg PO BEDTIME lisinopril 20 mg tablet 20 mg PO DAILY amlodipine 5 mg tablet 5 mg PO DAILY fluoxetine 20 mg capsule 40 mg PO DAILY acetaminophen 325 mg Tablet 650 mg PO Q4H PRN (Reason: Pain (Scale Score 4-6)) docusate sodium 50 mg Capsule 50 mg PO DAILY PRN (Reason: Constipation) Discharge Orders: Discharge Order (Routine); Ordered 11/28/24 Ordered By: Josefa Quinn Activity on Discharge: As tolerated Stand Alone Forms: Patient Portal Discharge page Print Language: Latvian Care Plan Goals: see below Health Concerns: You tested positive for entero/rhinovirus which is a common virus that causes upper respiratory symptoms. There is not specific directed treatment. Plan of Treatment: you were admitted to the hospital for management of viral URI caused by entero/rhinovirus. you have requested to be discharged home. recommend supportive care, management of symptoms with cough medicine, rest and staying hydrated. Can use motrin or tylenol for fever or muscle aches Call to schedule follow up appointment with your PCP or return to the ED with worsening symptoms Assessment: see discharge summary
--- NOTE | 2024-11-28 17:20 | PC.NURSE ---
Pt requested to leave AMA. Hospitalist notified and at bedside to talk with patient. Per Hospitalist Josefa PLUMMER- pt ok to safely d/c home. Pt refused afternoon medications/vitals, requesting to leave now. 20g IV Left AC removed. Pt given d/c education/instructions
== END 2024-11-28 17:26 | disposition home or self-care (01) ==
LOC: HO.ED 06:27 → HO.EDOVER 08:18
PROVIDERS: Emergency Medicine; Physician Assistant Medical; Admitting Provider Physician Assistant Medical; Emergency Provider Emergency Medicine; PCP Internal Medicine; Visit Provider Student in an Organized Health Care Education/Training Program
DX: J20.8 Acute bronchitis due to other specified organisms (principal); B34.8 Other viral infections of unspecified site; R53.1 Weakness; R05.9 Cough, unspecified; R51.9 Headache, unspecified; R07.89 Other chest pain; R06.02 Shortness of breath; J45.909 Unspecified asthma, uncomplicated; Z03.818 Encounter for observation for suspected exposure to other biological agents ruled out
CPT/HCPCS: 36415; 71045; 80053; 83605; 85025; 87040; 87502; 87633; 87635; 93005; 94640; 96365; 96366; 96375; 99221; 99285; J0131; J0456; J0696; J2919

== ENCOUNTER → 2024-11-28 03:06 | Outpatient (BNV) | payer MEDICARE, SELFPAY | PROVIDERS: Admitting Provider Physician Assistant Medical; Emergency Provider Emergency Medicine; PCP Internal Medicine; Visit Provider Internal Medicine | DX: R94.31 Abnormal electrocardiogram [ECG] [EKG] (principal); R06.02 Shortness of breath | CPT/HCPCS: 93010 ==

== ENCOUNTER → 2024-11-28 03:34 | Outpatient (BNV) | payer MEDICARE, SELFPAY | PROVIDERS: Emergency Provider Emergency Medicine; PCP Internal Medicine; Visit Provider Radiology Vascular & Interventional Radiology | DX: R06.02 Shortness of breath (principal) | CPT/HCPCS: 71045 ==

== ENCOUNTER → 2024-11-28 08:12 | Outpatient (BNV) | payer MEDICARE, SELFPAY | PROVIDERS: Admitting Provider Physician Assistant Medical; Emergency Provider Emergency Medicine; PCP Internal Medicine; Visit Provider Physician Assistant Medical | DX: B34.8 Other viral infections of unspecified site (principal); J20.8 Acute bronchitis due to other specified organisms | CPT/HCPCS: 99235; 99499 ==